=== PATIENT | male | born 1975 ===

== ENCOUNTER 2018-01-05 09:06 | Emergency (ER) | payer BC ==
[~2018-01-05] VITALS: Ht 188 cm; Wt 163.3 kg
[2018-01-05] MEDS ORDERED: IBUPROFEN800 MG PO (09:42)
[2018-01-05] MEDS ORDERED: PERCOCET 5-3251 EACH PO (09:42)
== END 2018-01-05 10:17 | disposition home or self-care (01) ==
LOC: ER 09:06
DX: J06.9 Acute upper respiratory infection, unspecified (principal)